=== PATIENT | male | born 1960 | race Caucasian/White ===

== ENCOUNTER 2017-01-15 17:43 | Emergency (ER) | payer OTHER ==
--- NOTE | ~2017-01-15 | CR21 ---
[facility]. [facility] A Service of [facility] & [facility] RADIOLOGY TEXT RESULTS PATIENT: ROSELYN KUMAR LOCATION: SED : 60 UNIT #: [id number] AGE: [address]: Yisel Ashley SEX: M ORDER DR: [id number] [place] [id number] E MR#: [id number] Acc #: [id number] NAME: ROSELYN KUMAR : 1960 SEX: M STUDY DATE/TIME: 01/15/2017 18:00 UNIT: SED ROOM: STUDY DESCRIPTION: CR Ankle Min 3 Views Rt Attending Physician: Yisel Ashley Pa-C Ordering Physician: Alice Mcconnell M.D. Primary Care Physician: Rashel Bacon M.D. MEDICAL IMAGING REPORT This report is preliminary unless electronic signature is present. EXAM Right ankle, 3 views, 01/15/2017 HISTORY Right ankle pain and swelling after rolling ankle doing yard work 12 days ago, persistent pain and swelling. FINDINGS Three views of the right ankle demonstrate no fracture. The bones are normally mineralized. The ankle mortise is intact. There is mild soft tissue swelling overlying the lateral malleolus. IMPRESSION Soft tissue swelling overlying the lateral malleolus. No evidence of fracture. Dictated by... Franki Covarrubias M.D. THIS IS AN ELECTRONICALLY VERIFIED REPORT Franki Covarrubias M.D. at 01/17/2017 8:22 AM KRT/mickey TD: 01/16/2017 02:01 JOB #: [id number] MEDICAL IMAGING REPORT Page 1 of 1
--- NOTE | ~2017-01-15 | CR127 ---
[facility] A Service of [facility] & [facility] RADIOLOGY TEXT RESULTS PATIENT: ROSELYN KUMAR LOCATION: SED : 60 UNIT #: [id number] AGE: [address]: Yisel Ashley SEX: M ORDER DR: [id number] [place] [id number] E MR#: [id number] Acc #: [id number] NAME: ROSELYN KUMAR : 1960 SEX: M STUDY DATE/TIME: 01/15/2017 18:00 UNIT: SED ROOM: STUDY DESCRIPTION: CR Foot Complete Min 3 View Rt Attending Physician: Yisel Ashlye Pa-C Ordering Physician: Alice Mcconnell M.D. Primary Care Physician: Rashel Bacon M.D. MEDICAL IMAGING REPORT This report is preliminary unless electronic signature is present. EXAM Right foot, 3 views, 01/15/2017 HISTORY Right foot pain and swelling after rolling foot and ankle while doing yard work 12 days ago, persistent pain and swelling. FINDINGS Three views of the right foot demonstrate no fracture. The bones are normally mineralized. The joint spaces are normally maintained. There is soft tissue swelling about the right foot. No foreign body is seen. IMPRESSION Soft tissue swelling about the right foot. No evidence of fracture or radiopaque foreign body. Dictated by... Franki Covarrubias M.D. THIS IS AN ELECTRONICALLY VERIFIED REPORT Franki Covarrubias M.D. at 01/17/2017 8:22 AM KRT/psc TD: 01/16/2017 02:03 JOB #: [id number] MEDICAL IMAGING REPORT Page 1 of 1
[~2017-01-15 17:43] MED LIST: APRAZOLAM PO; BACTRIM DS TABL1 TA1 PO; NO MEDICATIONS; OXYCODONE PO; TYLENOL #3 PO; VICODIN 5/1 TAB 5/50 PO
== END 2017-01-15 19:27 | disposition home or self-care (01) ==
LOC: SED 17:43
DX: S93.401A Sprain of unspecified ligament of right ankle, initial encounter (principal); Z79.899 Other long term (current) drug therapy; X58.XXXA Exposure to other specified factors, initial encounter; Y92.009 Unspecified place in unspecified non-institutional (private) residence as the place of occurrence of the external cause
CPT/HCPCS: 29540; 73610; 73630; 99283